=== PATIENT | male | born 1965 | race Caucasian/White ===

== ENCOUNTER 2017-02-17 22:47 | Emergency (ER) | payer MEDICAID ==
[~2017-02-17] VITALS: Ht 180.3 cm; Wt 94.3 kg
[2017-02-17 23:01] VITALS: BP 129/94
[2017-02-17 23:27] LABS: Basophils # (auto) 0 uL; Basophils % (auto) 0.3 % (0.0-2.0); CONDITION Y; Eosinophils # (auto) 0.1 uL; Hematocrit 47.2 % (41.0-53.0); Hemoglobin 16.1 g/dL (13.5-17.5); Lymphocytes # (auto) 2.4 uL; Mean Corpuscular Hemoglobin 32.5 pg (28.0-32.0); Mean Corpuscular Hgb Conc. 34.1 g/dL (32.0-36.0); Mean Corpuscular Volume 95.4 fL (80.0-100.0); Mean Platelet Volume 8.4 fL (7.4-10.4); Monocytes # (auto) 0.9 uL; Monocytes % (auto) 8.6 % (0.0-12.0); Neutrophils # (auto) 7.1 uL; Neutrophils % (auto) 67.1 % (37.0-80.0); Platelet Count (auto) 292 10^3/uL (140-450); Red Cell Distribution Width 13.4 % (11.6-16.0); White Blood Cell 10.5 10^3/uL (4.4-10.8)
[2017-02-17 23:55] LABS: Albumin 3.9 g/dL (3.4-5.0); BUN/Creatinine Ratio 13.9; Calcium 8.2 mg/dL (8.5-10.1)
[2017-02-17 23:59] LABS: Bilirubin, Total 0.7 mg/dL (0.2-1.0); Total Protein 7.9 g/dL (6.4-8.2)
[2017-02-18 00:02] LABS: Uric Acid 8.4 mg/dL (3.5-7.2)
[2017-02-18] MEDS ORDERED: KETOROLAC TROMETH 60MG/2ML VIAL IM ONE (00:30)
== END 2017-02-18 00:46 | disposition home or self-care (01) ==
LOC: ER 22:52
DX: M10.9 Gout, unspecified (principal); Z88.0 Allergy status to penicillin
CPT/HCPCS: 36415; 73630; 80053; 84550; 85025; 96372; 99285; J1885